=== PATIENT | female | born 1945 | race Caucasian/White ===

== ENCOUNTER 2022-12-18 19:51 | Inpatient (IN) | payer OTHER, MEDICAID ==
[~2022-12-18] VITALS: Ht 157.5 cm; Wt 77.1 kg
[2022-12-18 19:55] VITALS: BP_SYST 169; PULSE 62; RESP 20; TEMP 97; O2SAT 99
[2022-12-18 21:08] LABS: BASOPHILS % (AUTO) 0.6 % (0.0-2.0); EOSINOPHILS # (AUTO) 0.2 K/uL (0.0-0.4); EOSINOPHILS % (AUTO) 3.3 % (0.0-4.0); HEMATOCRIT 33.8 % (36-48); LYMPHOCYTES # (AUTO) 1.5 K/uL (1.0-5.5); LYMPHOCYTES % (AUTO) 24.4 % (20.5-51.5); MEAN CORPUSCULAR HEMOGLOBIN 26 pg (27-31); MEAN CORPUSCULAR HGB CONC 33 % (32-36); MEAN CORPUSCULAR VOLUME 78 fL (79.0-98.0); MONOCYTES # (AUTO) 0.6 K/uL (0.0-1.0); MONOCYTES % (AUTO) 9.6 % (1.7-9.3); NEUTROPHILS # (AUTO) 3.7 K/uL (1.8-7.7); NEUTROPHILS % (AUTO) 62.1 % (40.0-70.0); PLATELET COUNT (AUTO) 315 K/uL (130-430); RED BLOOD CELL COUNT(AUTO) 4.32 MIL/uL (4.2-6.2); RED CELL DISTRIBUTION WIDTH 16.5 % (9.0-15.0)
[2022-12-18 21:32] LABS: ANION GAP 7 (5-15); CALCIUM 8.9 mg/dL (8.4-11.0); CARBON DIOXIDE 28 mmol/L (23-29); CHLORIDE 103 mmol/L (98-107); CREATININE 0.96 mg/dL (0.55-1.30); GLUCOSE 103 mg/dL (74-106); POTASSIUM 3.9 mmol/L (3.5-5.1); SODIUM SERUM 138 mmol/L (136-145); UREA NITROGEN, BLOOD 17 mg/dL (8-21)
[2022-12-18 21:36] LABS: ALANINE AMINOTRANSFERASE 9 U/L (12-78); ALBUMIN 3.1 g/dL (3.4-4.8); ASPARTATE AMINOTRANSFERASE 21 U/L (10-37); TOTAL BILIRUBIN 0.5 mg/dL (0.0-1.0)
[2022-12-18 21:38] LABS: INR 1.1 (0.8-1.2); PROTHROMBIN TIME 11.5 SECS (9.5-12.5)
[2022-12-18 21:47] LABS: ALCOHOL, BLOOD < 3 mg/dL (<10)
[2022-12-18 22:20] LABS: BILIRUBIN,URINE NEGATIVE (NEGATIVE); BLOOD, URINE 1+ (NEGATIVE); COLOR,URINE YELLOW (YELLOW); GLUCOSE,URINE NEGATIVE (NEGATIVE); KETONES,URINE NEGATIVE (NEGATIVE); LEUKOCYTE ESTERASE ,URINE 1+ (NEGATIVE); NITRITE, URINE NEGATIVE (NEGATIVE); PROTEIN URINE NEGATIVE (NEGATIVE); UROBILINOGEN,URINE 0.2 (0.2-1.0)
[2022-12-18 22:37] LABS: BARBITURATE, URINE NEGATIVE (NEG <=200); BENZODIAZEPINE, URINE NEGATIVE (NEG <=150); CANNABINOID, URINE NEGATIVE (NEG <=50); COCAINE, URINE NEGATIVE (NEG <=150); METHAMPHETAMINES SCREEN,URINE NEGATIVE (NEG <=500); OPIATE, URINE NEGATIVE (NEG <=100); PHENCYCLIDINE SCREEN,URINE NEGATIVE (NEG <=25); UR TRICYCLIC ANTIDEPRESSANTS NEGATIVE (NEG <=300); URINE AMPHETAMINE NEGATIVE (NEG <=500); URINE METHADONE NEGATIVE (NEG <=200); URINE OXYCODONE SCREEN NEGATIVE (NEG <=100); URINE PROPOXYPHENE SCREEN NEGATIVE (NEG <=300)
[2022-12-18 22:45] LABS: CLARITY/URINE SLIGHTLY CLOUDY (CLEAR)
[2022-12-18 22:46] LABS: WBC,URINE 20-50 /HPF (0-3)
[2022-12-18 22:47] LABS: BACTERIA,URINE FEW /HPF (None Seen)
[2022-12-19] MEDS ORDERED: LACT10SO7 PO (00:13)
[2022-12-19] MEDS ORDERED: LISI10TA29 PO (00:13)
[2022-12-19] MEDS ORDERED: LIP10 PO (00:13)
[2022-12-19] MEDS ORDERED: RISP0.5T5 PO (00:13)
[2022-12-19] MEDS ORDERED: IBUP-2604 PO (00:13)
[2022-12-19] MEDS ORDERED: ACET325T PO (00:13)
[2022-12-19] MEDS ORDERED: ESCI10TA PO (00:13)
[2022-12-19] MEDS ORDERED: MOM PO (00:13)
[2022-12-19] MEDS ORDERED: ASPIRIN 325 MG TABLET PO ONE (00:15)
[2022-12-19 01:43] VITALS: BP_SYST 139; PULSE 64; RESP 20; TEMP 97.4
[2022-12-19 02:00] VITALS: BP_SYST 139; PULSE 17; RESP 17; TEMP 97.4; O2SAT 97
[2022-12-19] MEDS ORDERED: MILK OF MAGNESIA 30 ML UDC PO PRN (08:30)
[2022-12-19] MEDS ORDERED: IBUPROFEN 200 MG TABLET PO PRN (08:30)
[2022-12-19] MEDS ORDERED: ACETAMINOPHEN 325 MG TABLET PO PRN ×2 (08:30)
[2022-12-19] MEDS ORDERED: ESCITALOPRAM OXALATE 10 MG TABLET PO SCH (09:00)
[2022-12-19] MEDS: LISINOPRIL 10 MG TABLET (PRINIVIL) PO SCH (09:45)
[2022-12-19] MEDS: ASPIRIN 81 MG TAB.CHEW PO SCH (09:45)
[2022-12-19] MEDS: CITALOPRAM HYDROBROMIDE 20 MG TABLET PO SCH (09:45)
[2022-12-19] MEDS: NACL 0.9% 1,000 ML IV SCH ×2 (09:45→22:49)
[2022-12-19] MEDS: cefTRIAXone 1 GM in D5W 50 ML IV SCH (09:54)
[2022-12-19 11:21] VITALS: BP_SYST 137; PULSE 61; RESP 27; TEMP 97.8; O2SAT 97
[2022-12-19 11:26] VITALS: O2SAT 96
[2022-12-19 16:59] VITALS: BP_SYST 137; PULSE 97; RESP 16; TEMP 97.8; O2SAT 95
[2022-12-19 20:00] VITALS: BP_SYST 125; PULSE 57; RESP 18; TEMP 98.5; O2SAT 94
[2022-12-19] MEDS: ATORVASTATIN 10 MG TABLET PO SCH (21:07)
[2022-12-20] VITALS (7 sets, daily range): BP systolic 102–131; PULSE 55–66; RESP 18–20; TEMP 97.8–98.2; O2SAT 94–100
[2022-12-20] MEDS: ASPIRIN 81 MG TAB.CHEW PO SCH (09:23)
[2022-12-20] MEDS: LISINOPRIL 10 MG TABLET (PRINIVIL) PO SCH (09:24)
[2022-12-20] MEDS: CITALOPRAM HYDROBROMIDE 20 MG TABLET PO SCH (09:24)
[2022-12-20] MEDS: cefTRIAXone 1 GM in D5W 50 ML IV SCH (09:28)
[2022-12-20] MEDS: NACL 0.9% 1,000 ML IV SCH (13:06)
[2022-12-20] MEDS ORDERED: ASPI-1393 PO (17:20)
[2022-12-20] MEDS: ATORVASTATIN 10 MG TABLET PO SCH (23:36)
[2022-12-21] VITALS (7 sets, daily range): BP systolic 120–142; PULSE 54–62; RESP 18–20; TEMP 96.8–98.6; O2SAT 93–98
[2022-12-21] MEDS: NACL 0.9% 1,000 ML IV SCH ×2 (03:24→17:42)
[2022-12-21] MEDS: cefTRIAXone 1 GM in D5W 50 ML IV SCH (09:38)
[2022-12-21] MEDS: LISINOPRIL 10 MG TABLET (PRINIVIL) PO SCH (09:39)
[2022-12-21] MEDS: CITALOPRAM HYDROBROMIDE 20 MG TABLET PO SCH (09:39)
[2022-12-21] MEDS: ASPIRIN 81 MG TAB.CHEW PO SCH (09:39)
[2022-12-21] MEDS: ATORVASTATIN 10 MG TABLET PO SCH (21:03)
[2022-12-22] VITALS: BP_SYST 106; PULSE 56; RESP 18; TEMP 97.6; O2SAT 96
[2022-12-22 07:57] VITALS: BP_SYST 125; PULSE 53; RESP 16; TEMP 97.4; O2SAT 96
[2022-12-22 08:41] VITALS: BP_SYST 125; PULSE 53; RESP 18; TEMP 97.4; O2SAT 96
[2022-12-22] MEDS: cefTRIAXone 1 GM in D5W 50 ML IV SCH (09:11)
[2022-12-22] MEDS: ASPIRIN 81 MG TAB.CHEW PO SCH (09:11)
[2022-12-22] MEDS: CITALOPRAM HYDROBROMIDE 20 MG TABLET PO SCH (09:12)
[2022-12-22] MEDS: LISINOPRIL 10 MG TABLET (PRINIVIL) PO SCH (09:12)
== END 2022-12-22 12:04 | DRG 69 ==
LOC: SED 19:51 → SMU 23:32
PROVIDERS: ADMIT General Practice; ATTEND General Practice
DX: G45.9 Transient cerebral ischemic attack, unspecified (principal); N39.0 Urinary tract infection, site not specified; M16.0 Bilateral primary osteoarthritis of hip; M17.0 Bilateral primary osteoarthritis of knee; G83.14 Monoplegia of lower limb affecting left nondominant side; G62.9 Polyneuropathy, unspecified; I10 Essential (primary) hypertension; R29.703 NIHSS score 3; F31.9 Bipolar disorder, unspecified; E88.09 Other disorders of plasma-protein metabolism, not elsewhere classified; E78.5 Hyperlipidemia, unspecified; Z79.82 Long term (current) use of aspirin
CPT/HCPCS: 36415; 70450-TC; 70551; 71045; 72170-TC; 73502; 73564; 76376; 80053; 80307; 81000; 85025; 85610-TC; 85730-TC; 87081; 87086; 93005; 97110-GP; 97116-GP; 97163-GP; 97530-GP; 99285; G0482; J0696; J7030; J7060